=== PATIENT | male | born 1950 | race American Indian/Alaskan Native ===

== ENCOUNTER 2021-04-28 07:03 | Day surgery (SDC) | payer MEDICARE ==
[~2021-04-28 07:03] MED LIST: SODIUM CHLORIDE 0.9% 1000 ML 1,000 ML IV SCH
[2021-04-28] MEDS ORDERED: propofoL 200 MG/20 ML VIAL IV ONE ×2 (07:56)
[2021-04-28] MEDS ORDERED: LIDOCAINE MPF (2%) 20 MG/1 ML VIAL 5 ML ONE (07:56)
--- NOTE | 2021-04-28 08:05 | Anesthesia Consultation ---
Anesthesia Consult and Med Hx Date of service: 04/28/21 - Airway Anesthetic Teeth Evaluation: Good ROM Head & Neck: Adequate Mental/Hyoid Distance: Adequate Mallampati Class: Class III Intubation Access Assessment: Possibly Difficult - Pre-Operative Health Status ASA Pre-Surgery Classification: ASA3 Proposed Anesthetic Plan: MAC - Pulmonary Hx Smoking: No Hx Respiratory Symptoms: No - Cardiovascular System Hx Hypertension: Yes Hx Heart Attack/AMI: No Hx Percutaneous Transluminal Coronary Angioplasty (PTCA): No - Central Nervous System CVA: No - Endocrine Hx End Stage Renal Disease: Yes Hx Liver Disease: No Hx Insulin Dependent Diabetes: No Hx Non-Insulin Dependent Diabetes: No Hx Thyroid Disease: No - Additional Comments Anesthesia Medical History Comments: No hx anesthetic complications.
--- NOTE | 2021-04-28 08:06 | Anesthesia Day of Surgery ---
Anesthesia Day of Surgery - Day of Surgery Patient Examined: Yes Patient H&P Reviewed: Yes Patient is NPO: Yes
[2021-04-28 08:27] LABS: Calcium 9.2 mg/dL (8.4-10.2)
--- NOTE | 2021-04-28 09:51 | Short Stay Summary ---
Short Stay Documentation Date of service: 04/28/21 - History H&P: obtained from office - Allergies and Medications Current Medications: Allergies No Known Allergies Allergy (Verified 03/06/20 04:36) Home Medications Medication Instructions Recorded Confirmed Last Taken Type Amlodipine Besylate 10 mg DAILY 04/22/21 04/22/21 Unknown History Calcium Acetate 667 mg PO 04/22/21 Unknown History Losartan Potassium 50 mg DAILY 04/22/21 04/22/21 Unknown History Active Medications Sodium Chloride (Nacl 0.9% 1000 Ml) 1,000 mls @ 50 mls/hr IV DIRECT REAGAN - Brief post op/procedure progress note Date of procedure: 04/28/21 Procedure: see dictation Estimated blood loss: none Pathology: none Condition: stable - Disposition Condition at discharge: Good Disposition: 01 HOME / SELF CARE / HOMELESS - Discharge Diagnoses (1) Colon cancer screening Status: Acute (2) ESRD (end stage renal disease) on dialysis Status: Acute (3) HTN (hypertension) Status: Acute Short Stay Discharge Plan Activity: other (no driving for 24 hours) Weight Bearing Status: Full Weight Bearing Diet: renal Follow up with: PRIMARY MD HARISH [Primary Care Provider] - 7 Days
--- NOTE | 2021-04-28 09:54 | Operative Report ---
Operative Report Operative Report: Date of procedure: 04/28/2021 Preprocedure diagnosis: Colon cancer screening, no prior studies Post procedure diagnosis: Poor prep, study aborted at the sigmoid colon. Procedure: Sigmoidoscopy only due to poor prep. Endoscopist: Dr. Coreas Anesthesia: Monitored anesthesia care per anesthesia department Estimated blood loss: 0 Medications: Monitored anesthesia care. See separate report by anesthesia for details. After careful discussion of the nature and purpose of the procedure as well as d etails of the technique risks benefits and alternatives the patient gave consent. Please see recent history and physical from the office. The patient was placed in the left lateral decubitus position and medicated per anesthesia. A rectal exam was performed sphincter tone was normal there were no masses palpable. The [employer] 570 scope was passed transanally and advanced under continuous direc t vision without difficulty to the sigmoid colon. The colon preparation was extremely poor with thick liquid stool which could not be lavaged clear present in the rectum and sigmoid colon. It was decided to abort the procedure for safety purposes and because the mucosa could not be seen well. The rectum was was without polyps or mass lesion on forward view. The procedure was well- tolerated overall and the patient was observed in recovery. Conclusions: Poor prep, aborted procedure. No mass lesions to the sigmoid colon. Plan: Repeat colonoscopy with enhanced prep. The patient will call the office to reschedule. Signed electronically: Aquilino Coreas M.D.
--- NOTE | 2021-04-28 12:47 | Post Anesthesia Evaluation ---
- Post Anesthesia Evaluation Patient Participated: Yes Airway Patent: Yes Stable Respiratory Function: Yes Nausea/Vomiting: No Temp > 96.8F: Yes Pain Manageable: Yes Adequeate Hydration: Yes Anesthesia Complications: No
[2021-04-28 16:09] VITALS: BP 111/59
== END 2021-04-28 07:04 | disposition home or self-care (01) ==
LOC: GIO 07:03
PROVIDERS: ATTEND Internal Medicine Gastroenterology
DX: Z12.11 Encounter for screening for malignant neoplasm of colon (principal); K63.89 Other specified diseases of intestine; I12.9 Hypertensive chronic kidney disease with stage 1 through stage 4 chronic kidney disease, or unspecified chronic kidney disease; N18.6 End stage renal disease; Z99.2 Dependence on renal dialysis; Z79.899 Other long term (current) drug therapy; Z98.890 Other specified postprocedural states
CPT/HCPCS: 36415; 45330; 80048; J2704; J7030

== ENCOUNTER 2021-05-08 10:16 | Outpatient (CLI) | payer MEDICARE ==
--- NOTE | 2021-05-08 11:06 | XRay Report ---
CHEST 2 VIEWS INDICATION / CLINICAL INFORMATION: (+) ppd. COMPARISON: March 06, 2020 FINDINGS: SUPPORT DEVICES: None. HEART / MEDIASTINUM: No significant abnormality. LUNGS / PLEURA: No significant pulmonary or pleural abnormality. No pneumothorax. ADDITIONAL FINDINGS: No significant additional findings. IMPRESSION: 1. No acute findings. Signer Name: Gabriel Farrar MD Signed: 05/08/2021 11:02 AM Workstation Name: [email or web address]
== END 2021-05-08 10:17 | disposition home or self-care (01) ==
LOC: XRAY 10:16
PROVIDERS: ATTEND Hospitalist
DX: R76.11 Nonspecific reaction to tuberculin skin test without active tuberculosis (principal)
CPT/HCPCS: 71046